=== PATIENT | female | born 1980 | race Caucasian/White ===

== ENCOUNTER 2020-02-09 18:14 | Inpatient (IN) | payer OTHER ==
[2020-02-09] MEDS ORDERED: chlordiazePOXIDE HCL 25 MG CAPSULE PO ONE (19:27)
[2020-02-09] MEDS ORDERED: LACTATED RINGERS SOLUTION 1000 ML INFUS.BAG IV STA (19:27)
--- NOTE | 2020-02-09 19:43 | PDOC ---
History of Present Illness - General Chief Complaint: Pain Stated Complaint: ABDOMINAL PAIN Time Seen by Provider: 02/09/20 18:32 History Source: Patient Exam Limitations: No Limitations - History of Present Illness Initial Comments: Silvana Boyce is a 39 F with a PMH of asthma, HLD, HTN, s/p gastric by pass, s/p c-sectionsx2, presents from [facility] with 2 weeks of abdominal pain. Pain is diffuse, episodic, sharp in nature, 8/10, non radiating, relieved with alcohol, associated with nausea and vomiting. She reports 2 episodes of NBNB vomits. Also reports occasional palpitations for 1 month and bright red blood per rectum w/bowel movements. Denies any fever, chest pain, SOB, diarrhea, constipation, weakness, changes in mental status. She was in [facility] today for alcohol detox. she reports alcohol use of 3 pints/D x 12 years, last use today (1 pint, before going to [facility]). Nicotine 1ppd since 12 years of age, current use. No illicit drugs, no hx of HIV, Hepatitis. LMP jan 2020, . 02/09/20 19:33 Past History - Medical History Allergies/Adverse Reactions: Allergies Allergy/AdvReac Type Severity Reaction Status Date / Time doxycycline Allergy Severe Verified 02/09/20 18:23 meperidine [From Demerol] Allergy Severe Verified 02/09/20 18:23 Home Medications: Ambulatory Orders NK [No Known Home Medication] 02/09/20 Asthma: No Cardiac Disorders: No COPD: No Diabetes: No GI Disorders: No Disorders: No HTN: No Kidney Stones: No Seizures: No - Surgical History Abdominal Surgery: No Appendectomy: No Cardiac Surgery: No Cholecystectomy: No Lung Surgery: No Neurologic Surgery: No Orthopedic Surgery: No - Reproductive History Is Patient Now?: No - Psycho-Social/Smoking History Smoking History: Current every day smoker Have you smoked in the past 12 months: Yes Number of Cigarettes Smoked Daily: 10 Information on smoking cessation initiated: Yes - Substance Abuse Hx (Audit-C & DAST Scrn) How often the patient has a drink containing alcohol: 4 0r more times/wk Number of drinks the patient has on a typical day: 5 or 6 How often the patient has six or more drinks on one occasion: Daily or almost daily Score: In Men: 4 or > Positive; In Women: 3 or > Positive: 10 Screen Result (Pos requires Nsg. Audit-10AR): Positive In the last yr the pt used illegal drug/Rx for NonMed reason: No Score: Yes response is considered Positive: 0 Screen Result (Positive result requires Nsg. DAST-10): Negative Review of Systems - Review of Systems Able to Perform ROS?: Yes Is the patient limited [place] proficient: No Constitutional: Yes: Chills. No: Fever HEENTM: No: Blurred Vision, Nose Congestion, Throat Pain, Throat Swelling, Difficulty Swallowing Respiratory: No: Cough, Shortness of Breath, Wheezing Cardiac (ROS): Yes: Palpitations. No: Chest Pain, Edema, Lightheadedness ABD/GI: Yes: Abdominal Distended, Rectal Bleeding. No: Abd. Pain w/ defecation, Constipated, Diarrhea, Difficulty Swallowing, Vomiting : No: Burning, Dysuria, Frequency, Urgency Musculoskeletal: Yes: Back Pain (upper b/l) Integumentary: No: Change in Color Neurological: Yes: Headache, Tremors. No: Numbness, Paresthesia, Weakness, Dizziness Psychiatric: No: Anxiety *Physical Exam - Vital Signs Last Vital Signs Temp Pulse Resp BP Pulse Ox 97.4 F L 111 H 20 132/64 100 02/09/20 18:23 02/09/20 18:23 02/09/20 18:23 02/09/20 18:23 02/09/20 18:23 - Physical Exam General Appearance: No: Apparent Distress HEENT: positive: EOMI, VIRA, Scleral Icterus (R), Scleral Icterus (L). nega tive: Nasal Congestion, Rhinorrhea Neck: positive: Supple. negative: Tender, Carotid bruit Respiratory/Chest: positive: Chest Tender, Lungs Clear, Normal Breath Sounds. negative: Respiratory Distress, Rales, Rhonchi, Wheezing Cardiovascular: positive: S1, S2, Murmur, Tachycardia, Systolic Murmur (holosystolic 4/6 along the left lateral border). negative: Edema, JVD Vascular Pulses: Carotid (R): 2+, Carotid (L): 2+, Dorsalis-Pedis (R): 2+, Doralis-Pedis (L): 2+ Gastrointestinal/Abdominal: positive: Normal Bowel Sounds, Tender (TTP of RUQ), Protuberent, Distended Musculoskeletal: positive: Normal Inspection Extremity: positive: Normal Inspection. negative: Pedal Edema, Calf Tenderness Integumentary: positive: Warm, Jaundice. negative: Swelling Neurologic: positive: Fully Oriented, Alert, Responsive ED Treatment Course - LABORATORY CBC & Chemistry Diagram: 02/11/20 05:30 02/11/20 05:30 - RADIOLOGY Radiology Studies Ordered: Category Date Time Status CHEST X-RAY PORTABLE* [RAD] Stat Radiology 02/09/20 19:05 Ordered Medical Decision Making - Medical Decision Making 39 F with a PMH of asthma, HLD, HTN, s/p gastric by pass, s/p c-sectionsx2, presents from [facility] with 2 weeks of abdominal pain. #Abdominal pain 2/2 to possible liver pathology -PT(INR)/PTT -Ammonia -CBC -CMP -UA -CXR -EKG -LR 100 mls -Librium 50 mg 02/09/20 19:43 Discharge - Discharge Information Problems reviewed: Yes Clinical Impression/Diagnosis: Hepatitis Condition: Stable Disposition: TRANSFER ACUTE CARE/OTHER HOSP - Follow up/Referral - Patient Discharge Instructions - Post Discharge Activity
[2020-02-09] MEDS ORDERED: chlordiazePOXIDE HCL 25 MG CAPSULE ONE (20:28)
[2020-02-09 21:23] LABS: BASO % 0.2 % (0-2.0); HEMATOCRIT 22.9 % (32.4-45.2); HEMOGLOBIN 7.6 GM/dL (10.7-15.3); LYMPH % 9.4 % (8-40); MCH 29.9 pg (25.7-33.7); MEAN CELL VOLUME 90.6 fl (80-96); MEAN PLT VOLUME 8.7 fl (7.5-11.1); MONO % 8.4 % (3.8-10.2); PLATELET COUNT 93 K/MM3 (134-434); RBC 2.53 M/mm3 (3.60-5.2); RDW 21.9 % (11.6-15.6); WHITE BLOOD COUNT 12.2 K/mm3 (4.0-10.0)
[2020-02-09 21:26] LABS: ACTIVATED PTT 37.3 SECONDS (25.2-36.5)
[2020-02-09 21:52] LABS: ANISOCYTOSIS 2+; MACROCYTOSIS 2+
[2020-02-09 21:53] LABS: ALBUMIN 2.5 g/dl (3.4-5.0); BILIRUBIN,TOTAL 11.2 mg/dL (0.2-1); CALCIUM 7.9 mg/dL (8.5-10.1); CREATININE 0.7 mg/dL (0.55-1.3); MAGNESIUM 1.8 mg/dL (1.8-2.4); ROULEAU 1+
[2020-02-09 22:04] LABS: EPI CELLS >36 /uL (0-25.1); HYALINE CASTS 20 /uL (0-3.1); PH,URINE 5.5 (5.0-8.0); URINE APPEARANCE TURBID; URINE BACTERIA >9,000 /uL (0-1359); URINE BILIRUBIN 3+ (NEGATIVE); URINE COLOR DK YELLOW; URINE GLUCOSE (UA) NEGATIVE (NEGATIVE); URINE KETONE TRACE (NEGATIVE); URINE LEUK ESTERASE TRACE (NEGATIVE); URINE NITRITE POSITIVE (NEGATIVE); URINE PROTEIN TRACE (NEGATIVE); URINE RBC 54 /uL (0-23.9); URINE UROBILINOGEN 0.2 mg/dL (0.2-1.0); URINE WBC 72 /uL (0-25.8)
[2020-02-09 22:15] LABS: PROTHROMBIN TIME (PATIENT) 20.1 SEC (9.7-13.0)
[2020-02-09 22:16] LABS: INR 1.69 (0.83-1.09)
[2020-02-09] MEDS ORDERED: CEFTRIAXONE 1 GM in DEXTROSE 5%-WATER - 100 ML IVPB ONE (22:26)
[2020-02-09] MEDS ORDERED: CEFTRIAXONE 1 GM/50 ML BAG ONE (23:09)
--- NOTE | 2020-02-09 23:54 | PDOC ---
*Physical Exam - Vital Signs Last Vital Signs Temp Pulse Resp BP Pulse Ox 97.4 F L 111 H 20 132/64 100 02/09/20 18:23 02/09/20 18:23 02/09/20 18:23 02/09/20 18:23 02/09/20 18:23 ED Treatment Course - LABORATORY CBC & Chemistry Diagram: 02/10/20 03:00 02/09/20 20:43 - ADDITIONAL ORDERS Additional order review: Laboratory Results 02/09/20 02/09/20 02/09/20 21:00 20:43 20:43 PT with INR INR PTT (Actin FS) Sodium 130 L Potassium 4.0 Chloride 97 L Carbon Dioxide 14 L Anion Gap 19 H BUN 17.0 Creatinine 0.7 Est GFR (CKD-EPI)AfAm 125.61 Est GFR (CKD-EPI)NonAf 108.38 Random Glucose 102 Calcium 7.9 L Magnesium 1.8 Total Bilirubin 11.2 H AST 419 H ALT 231 H Alkaline Phosphatase 329 H Total Protein 7.0 Albumin 2.5 L Serum , Qual Negative Urine Color Dk yellow Urine Appearance Turbid Urine pH 5.5 Ur Specific [place] 1.028 Urine Protein Trace Urine Glucose (UA) Negative Urine Ketones Trace H Urine Blood Negative Urine Nitrite Positive H Urine Bilirubin 3+ H Urine Urobilinogen 0.2 Ur Leukocyte Esterase Trace Urine WBC (Auto) 72 Urine RBC (Auto) 54 Urine Casts (Auto) 20 U Pathogenic Cast Auto Negative U Epithel Cells (Auto) >36 Urine Bacteria (Auto) >9,000 02/09/20 20:43 PT with INR 20.10 H INR 1.69 H PTT (Actin FS) 37.3 H Sodium Potassium Chloride Carbon Dioxide Anion Gap BUN Creatinine Est GFR (CKD-EPI)AfAm Est GFR (CKD-EPI)NonAf Random Glucose Calcium Magnesium Total Bilirubin AST ALT Alkaline Phosphatase Total Protein Albumin Serum , Qual Urine Color Urine Appearance Urine pH Ur Specific [place] Urine Protein Urine Glucose (UA) Urine Ketones Urine Blood Urine Nitrite Urine Bilirubin Urine Urobilinogen Ur Leukocyte Esterase Urine WBC (Auto) Urine RBC (Auto) Urine Casts (Auto) U Pathogenic Cast Auto U Epithel Cells (Auto) Urine Bacteria (Auto) 02/09/20 20:43 RBC 2.53 L MCV 90.6 MCHC 33.0 RDW 21.9 H MPV 8.7 Neutrophils % 82.0 Lymphocytes % 9.4 Monocytes % 8.4 Eosinophils % 0.0 Basophils % 0.2 - Medications Given in the ED: ED Medications Discontinued Medications Generic Name Dose Route Start Last Admin Trade Name Camryn PRN Reason Stop Dose Admin Chlordiazepoxide HCl 50 mg 02/09/20 19:27 02/09/20 20:39 Librium - PO 02/09/20 19:28 50 mg ONCE ONE Administration Ceftriaxone Sodium 1 gm/ 100 mls @ 200 mls/hr 02/09/20 22:26 02/09/20 23:51 Dextrose IVPB 02/09/20 22:55 200 mls/hr ONCE ONE Administration Lactated Ringer's 1,000 ml 02/09/20 19:27 02/09/20 20:39 Lactated Ringers Solution IV 02/09/20 19:28 1,000 ml ONCE STA Administration Medical Decision Making - Medical Decision Making 02/10/20 00:40 Patient had trembling/tongue fasciculation---> give another dose of librium. CT scan came back : enlarged fatty liver, questionaly cirrhotic. moderate ascites. MBMD sent . Decision to admit made. Admitted under [facility] for tele inpatient for alcohol withdraw and hepatitis. 02/10/20 05:00 Patient had an episode of hemaemesis about 20 mins ago. About 2-3 small table spoons of bright blood. Patient will be going to ICU per medicine team. Another IV bore is placed on the right AC arm. Last vital sign was 104/58, HR 115. 02/10/20 05:04 02/10/20 05:07 Discharge - Discharge Information Problems reviewed: Yes Clinical Impression/Diagnosis: Hepatitis Condition: Good - Admission Yes - Follow up/Referral - Patient Discharge Instructions - Post Discharge Activity
--- NOTE | 2020-02-10 00:38 | PDOC ---
Attending Attestation - Resident Resident Name: Rocky Bain - ED Attending Attestation I have performed the following: I have examined & evaluated the patient, The case was reviewed & discussed with the resident, I agree w/resident's findings & plan, Exceptions are as noted - HPI HPI: 02/10/20 03:36 See resident HPI - Physicial Exam PE: 02/10/20 03:36 Agree with documented exam - Medical Decision Making 02/10/20 03:36 39F pmh EtOH abuse, HTN, HLD, asthma, here with progressive abd px over 2 weeks, sent from [facility] Liver pathology? medardo? ascitic? f/u labs including ammonia, cxr, ekg LR librium re-evaluate dispo per clinical course Discharge - Discharge Information Problems reviewed: Yes Clinical Impression/Diagnosis: Hepatitis Condition: Good - Follow up/Referral - Patient Discharge Instructions - Post Discharge Activity
[2020-02-10] MEDS ORDERED: chlordiazePOXIDE HCL 25 MG CAPSULE PO ONE (01:14)
[2020-02-10] MEDS ORDERED: chlordiazePOXIDE HCL 25 MG CAPSULE ONE (01:43)
--- NOTE | 2020-02-10 02:26 | HP ---
CHIEF COMPLAINT: PCP: HISTORY OF PRESENT ILLNESS: ER course was notable for: (1)Ceftriaxone 1g (2)LR (3)Ab/Pelvic CT W/O contrast Recent Travel:None PAST MEDICAL HISTORY:DM, HTN, ASTHMA(LAST 3 PAST SURGICAL HISTORY: Gastric by-pass surg, tummy tuck surgery, Nose surgery following a # and tonsillectomy in childhood, depression Social History: Lives with 3 daughters. Has no occupation. Has Medicaid insurance Smokinppd/30yrs Alcohol:3 pints vodka/day for from age 12 for about 10yrs, stopped and restarted 12yrs ago. 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 Last drink was a day ago Drugs: None Allergies: Demerol and doxycycline REVIEW OF SYSTEMS: Negative except as above HOME MEDICATIONS: Home Medications Medication Instructions Recorded NK [No Known Home Medication] 02/09/20 Vital Signs - 24 hr 02/09/20 02/10/20 18:23 00:44 Temperature 97.4 F L 98.1 F Pulse Rate 111 H Pulse Rate [ 115 H Right Radial] Respiratory 20 15 Rate Blood Pressure 132/64 Blood Pressure 104/58 L [Left Arm] O2 Sat by Pulse 100 97 Oximetry (%) PHYSICAL EXAMINATION GENERAL: Awake, alert, and fully oriented, dyspneic and in severe painful distress HEAD: Normal with no signs of trauma. EYES: Iteric NECK: Normal range of motion, supple without lymphadenopathy, LUNGS: Vesicular Breath sounds equal b/l. No wheezes CVS:HEART S1 and S2 with pansystolic murmur ABDOMEN: Soft, very tender and distended with fluid, hypoactive bowel sounds. Hepatomegaly 10cm below costal margin. Palpation limited by severe abdominal pain ? Splenomegaly and gall bladder. No distended abdominal veins MUSCULOSKELETAL: Normal range of motion at all joints. UPPER EXTREMITIES: 2+ pulses, warm, well-perfused. No clubbing, no walsh eytherma. No peripheral edema. Tremors present but not flapping LOWER EXTREMITIES: 2+ pulses, warm, well-perfused. No calf tenderness. Peripheral edema 1+ NEUROLOGICAL: Cranial nerves II-XII intact. Normal speech. PSYCHIATRIC: Cooperative. Good eye contact. Sad affect, anxious with mild agitation. SKIN: Warm, dry, normal turgor, no walsh eytherma Laboratory Results - last 24 hr 02/09/20 02/09/20 02/09/20 20:43 20:43 20:43 WBC 12.2 H RBC 2.53 L Hgb 7.6 L Hct 22.9 L MCV 90.6 MCH 29.9 MCHC 33.0 RDW 21.9 H Plt Count 93 L MPV 8.7 Absolute Neuts (auto) 10.0 H Neutrophils % 82.0 Lymphocytes % 9.4 Monocytes % 8.4 Eosinophils % 0.0 Basophils % 0.2 Nucleated RBC % 0 Hypochromia 2+ Anisocytosis 2+ Macrocytosis 2+ Acanthocytes (Spur) 1+ Rouleaux 1+ Schistocytes 1+ PT with INR 20.10 H INR 1.69 H PTT (Actin FS) 37.3 H Sodium 130 L Potassium 4.0 Chloride 97 L Carbon Dioxide 14 L Anion Gap 19 H BUN 17.0 Creatinine 0.7 Est GFR (CKD-EPI)AfAm 125.61 Est GFR (CKD-EPI)NonAf 108.38 Random Glucose 102 Calcium 7.9 L Magnesium 1.8 Total Bilirubin 11.2 H AST 419 H ALT 231 H Alkaline Phosphatase 329 H Ammonia Total Protein 7.0 Albumin 2.5 L Serum , Qual Urine Color Urine Appearance Urine pH Ur Specific [place] Urine Protein Urine Glucose (UA) Urine Ketones Urine Blood Urine Nitrite Urine Bilirubin Urine Urobilinogen Ur Leukocyte Esterase Urine WBC (Auto) Urine RBC (Auto) Urine Casts (Auto) U Pathogenic Cast Auto U Epithel Cells (Auto) Urine Bacteria (Auto) 02/09/20 02/09/20 02/10/20 20:43 21:00 00:55 WBC RBC Hgb Hct MCV MCH MCHC RDW Plt Count MPV Absolute Neuts (auto) Neutrophils % Lymphocytes % Monocytes % Eosinophils % Basophils % Nucleated RBC % Hypochromia Anisocytosis Macrocytosis Acanthocytes (Spur) Rouleaux Schistocytes PT with INR INR PTT (Actin FS) Sodium Potassium Chloride Carbon Dioxide Anion Gap BUN Creatinine Est GFR (CKD-EPI)AfAm Est GFR (CKD-EPI)NonAf Random Glucose Calcium Magnesium Total Bilirubin AST ALT Alkaline Phosphatase Ammonia < 10.00 L Total Protein Albumin Serum , Qual Negative Urine Color Dk yellow Urine Appearance Turbid Urine pH 5.5 Ur Specific [place] 1.028 Urine Protein Trace Urine Glucose (UA) Negative Urine Ketones Trace H Urine Blood Negative Urine Nitrite Positive H Urine Bilirubin 3+ H Urine Urobilinogen 0.2 Ur Leukocyte Esterase Trace Urine WBC (Auto) 72 Urine RBC (Auto) 54 Urine Casts (Auto) 20 U Pathogenic Cast Auto Negative U Epithel Cells (Auto) >36 Urine Bacteria (Auto) >9,000 ASSESSMENT/PLAN: #ALCOHOLIC LIVER DISEASE: -Distended abdomen, Hepatomegaly, Hematochezia and melena, hematuria, hx of hematememsis -Transaminitis -Raised ALP -IV protonix 40mg -GGT ordered to confirm liver source of ALP -GI consult sent -metallurgical specialist consulted -TSH ordered -CT ABD/PELVIS W/O CONTRAST -Hep C PCR -Hepatitis B and A Panel HIV 4th gen screening #ALCOHOL INDUCED FATTY LIVER: -Abd US shows fatty liver -Elevated Tbili and liver enzymes -Hx of alcohol use disorder complicated -Lipid Panel #TRANSAMINITIS: -Elevated liver enzymes: ALT, AST, ALP -Sexually active, no barrier contraceptive use -Hepatitis A and B panel -Hep C serology -HIV th gen screening # MIXED ANEMIA: -Macrocytic anemia: Alcohol induced folate deficiency and toxic effect on bone marrow with macrocytic RBC -Iron deficiency from hematochezia, melena, hematuria and malnutrition associated with alcoholism -Thrombocytopenia like due to direct toxic effect, hypersplenism or folate deficiency due to alcoholism -Progressive drop in Hb likely due to continuous bleed. Patient reports passing black stool again while in ED -PT/INR, PTT admitted -2PRBC transfusion stat -Iron studeis: FOBT, serum Fe, ferritin, TIBC, transferrin -Avoid NSAID and other meds that may worsen bleeding -Avoid hepatotoxic meds -Educate patient on importance of alcohol cessation #FEN: -N/S, banana bag -Mg, Phos stat, replete all electrolytes prn -NPO #DISPOSITION: -Admit ICU -SCD both legs -F/U all pending labs and Rx as clinically required Family Medical History Family History: As Documented Visit type - Emergency Visit Emergency Visit: Yes ED Registration Date: 02/10/20 Care time: The patient presented to the Emergency Department on the above date and was hospitalized for further evaluation of their emergent condition. - New Patient This patient is new to me today: Yes Date on this admission: 02/12/20 - Critical Care Critical Care patient: No ATTENDING PHYSICIAN STATEMENT I saw and evaluated the patient. I reviewed the resident's note and discussed the case with the resident. I agree with the resident's findings and plan as documented. SUBJECTIVE: OBJECTIVE: ASSESSMENT AND PLAN:
[2020-02-10] MEDS ORDERED: KETOROLAC TROMETHAMINE 15 MG/ML VIAL IVPUSH ONE (03:27)
[2020-02-10] MEDS ORDERED: SODIUM BICARBONATE 650 MG TABLET PO ONE (03:28)
[2020-02-10] MEDS ORDERED: SODIUM CHLORIDE 1,000 ML IV SCH ×2 (03:30→03:42)
[2020-02-10] MEDS ORDERED: PANTOPRAZOLE SODIUM 40 MG VIAL IVPUSH SCH ×2 (03:38→10:00)
[2020-02-10] MEDS ORDERED: FOLIC ACID INJECTION - 1 MG, THIAMINE HCL 100 MG, MULTIVIT INJECTION ADULT 10 ML in SOD... IVPB ONE (03:39)
[2020-02-10] MEDS ORDERED: KETOROLAC TROMETHAMINE 15 MG/ML VIAL ONE (03:40)
[2020-02-10] MEDS ORDERED: morphine CARPU-JECT 2 MG/1 ML DISP.SYRIN IVPUSH ONE (03:48)
[2020-02-10] MEDS ORDERED: MORPHINE SULFATE 2 MG/ML VIAL ONE (03:56)
[2020-02-10] MEDS ORDERED: LORazepam 2 MG/ML SDV VIAL IVPUSH PRN (04:01)
[2020-02-10 04:02] LABS: BASO % 0.5 % (0-2.0); EOS % 0.1 % (0-4.5); HEMATOCRIT 21.5 % (32.4-45.2); HEMOGLOBIN 7.2 GM/dL (10.7-15.3); LYMPH % 18.4 % (8-40); MCH 30.1 pg (25.7-33.7); MCHC 33.6 g/dl (32.0-36.0); MEAN CELL VOLUME 89.6 fl (80-96); MEAN PLT VOLUME 8.5 fl (7.5-11.1); MONO % 7.7 % (3.8-10.2); NEUT % 73.3 % (42.8-82.8); PLATELET COUNT 84 K/MM3 (134-434); RDW 21.7 % (11.6-15.6); WHITE BLOOD COUNT 10.4 K/mm3 (4.0-10.0)
[2020-02-10] MEDS ORDERED: ERYTHROMYCIN *INJECTION* 500 MG VIAL IVPB ONE (04:53)
[2020-02-10] MEDS ORDERED: OCTREOTIDE ACETATE 50 MCG/1 ML - 1 ML VIAL IVPUSH ONE (04:53)
--- NOTE | 2020-02-10 05:19 | PN ---
Progress Note (short form) - Note Progress Note: Call placed to circulation manager GI service (Dr. William) for suspected acute GI bleed. Patient found to have 1 episode of bright red hematemesis without any clots. Pt's Hgb dropped from 7.6 to 7.2. Pt is an alcoholic admitted for acute withdrawal from alcohol as well as cirrhosis and jaundice with hematochezia. Pt given IV protonix and fluids, kept NPO. As per GI recommendations, will start octreotide drip and give erythromycin 250 to help empty stomach prior to EGD in AM. Pt's vitals are stable, ICU has been consulted, and they will provide assistance however given pt's vitals are stable, she will remain under telemetry care at this time.
[2020-02-10] MEDS ORDERED: LORazepam 2 MG/ML SDV VIAL ONE (05:39)
[2020-02-10] MEDS ORDERED: OCTREOTIDE ACETATE 100 MCG/1 ML ONE (05:40)
--- NOTE | 2020-02-10 05:48 | CONSULT ---
Consultation: REQUESTING PROVIDER: CONSULT REQUEST: We have been asked to medically evaluate this patient for hematemesis. HISTORY OF PRESENT ILLNESS: 39 year old F with a PMH of asthma, HLD, HTN, alcohol use disorder presented from [facility] for detox from alcohol with 2 weeks of abdominal pain. Pain is hortencia cribed as sharp and diffuse, but non-radiating. Pt stated it is relieved w/ alcohol. Currently rated 8/10 and is episodic. Pt also endorsed to N/V. Reported 2 episodes of NBNB vomitus and 1 episode of bright red blood per rectum. She denies fevers, chills, chest pain, SOB, constipation, changes in urinary patterns, numbness or tingling. Pt was admitted to Telemetry. While in the ED, pt had 1 episode of hematemesis of approximately 3 tablespoons of blood. Pt hemodynamically stable and able to protect airway. Saturation 99% on RA. GI consulted. Recommendations as below. PSH: gastric bypass, REVIEW OF SYSTEMS: As per HPI. PHYSICAL EXAMINATION Last Vital Signs Temp Pulse Resp BP Pulse Ox 98.1 F 115 H 15 104/58 L 97 02/10/20 00:44 02/10/20 00:44 02/10/20 00:44 02/10/20 00:44 02/10/20 00:44 GENERAL: Awake, alert, and fully oriented, in no acute distress. HEENT: NCAT, scleral icterus, moist mucus membranes. No active hematemesis. LUNGS: Breath sounds equal, clear to auscultation bilaterally. No wheezes. HEART: Regular rate and rhythm, normal S1 and S2 without murmur. ABDOMEN: Diffusely tender to palpaiton, distended, bowel sounds present. EXTREMITIES: warm, well-perfused, no edema. SKIN: Warm, dry Laboratory Last Values WBC 10.4 K/mm3 (4.0-10.0) H 02/10/20 03:00 RBC 2.40 M/mm3 (3.60-5.2) L 02/10/20 03:00 Hgb 7.2 GM/dL (10.7-15.3) L 02/10/20 03:00 Hct 21.5 % (32.4-45.2) L 02/10/20 03:00 MCV 89.6 fl (80-96) 02/10/20 03:00 MCH 30.1 pg (25.7-33.7) 02/10/20 03:00 MCHC 33.6 g/dl (32.0-36.0) 02/10/20 03:00 RDW 21.7 % (11.6-15.6) H 02/10/20 03:00 Plt Count 84 K/MM3 (134-434) L 02/10/20 03:00 MPV 8.5 fl (7.5-11.1) 02/10/20 03:00 Absolute Neuts (auto) 7.7 K/mm3 (1.5-8.0) 02/10/20 03:00 Neutrophils % 73.3 % (42.8-82.8) 02/10/20 03:00 Lymphocytes % 18.4 % (8-40) D 02/10/20 03:00 Monocytes % 7.7 % (3.8-10.2) 02/10/20 03:00 Eosinophils % 0.1 % (0-4.5) D 02/10/20 03:00 Basophils % 0.5 % (0-2.0) 02/10/20 03:00 Nucleated RBC % 0 % (0-0) 02/10/20 03:00 Hypochromia 2+ 02/09/20 20:43 Anisocytosis 2+ 02/09/20 20:43 Macrocytosis 2+ 02/09/20 20:43 Acanthocytes (Spur) 1+ 02/09/20 20:43 Rouleaux 1+ 02/09/20 20:43 Schistocytes 1+ 02/09/20 20:43 PT with INR 20.10 SEC (9.7-13.0) H 02/09/20 20:43 INR 1.69 (0.83-1.09) H 02/09/20 20:43 PTT (Actin FS) 37.3 SECONDS (25.2-36.5) H 02/09/20 20:43 Sodium 130 mmol/L (136-145) L 02/09/20 20:43 Potassium 4.0 mmol/L (3.5-5.1) 02/09/20 20:43 Chloride 97 mmol/L (98-107) L 02/09/20 20:43 Carbon Dioxide 14 mmol/L (21-32) L 02/09/20 20:43 Anion Gap 19 MMOL/L (8-16) H 02/09/20 20:43 BUN 17.0 mg/dL (7-18) 02/09/20 20:43 Creatinine 0.7 mg/dL (0.55-1.3) 02/09/20 20:43 Est GFR (CKD-EPI)AfAm 125.61 02/09/20 20:43 Est GFR (CKD-EPI)NonAf 108.38 02/09/20 20:43 Random Glucose 102 mg/dL (74-106) 02/09/20 20:43 Calcium 7.9 mg/dL (8.5-10.1) L 02/09/20 20:43 Magnesium 1.8 mg/dL (1.8-2.4) 02/09/20 20:43 Total Bilirubin 11.2 mg/dL (0.2-1) H 02/09/20 20:43 AST 419 U/L (15-37) H 02/09/20 20:43 ALT 231 U/L (13-61) H 02/09/20 20:43 Alkaline Phosphatase 329 U/L (45-117) H 02/09/20 20:43 Ammonia < 10.00 umol/L (11-32) L 02/10/20 00:55 Total Protein 7.0 g/dl (6.4-8.2) 02/09/20 20:43 Albumin 2.5 g/dl (3.4-5.0) L 02/09/20 20:43 Serum , Qual Negative 02/09/20 20:43 Urine Color Dk yellow 02/09/20 21:00 Urine Appearance Turbid 02/09/20 21:00 Urine pH 5.5 (5.0-8.0) 02/09/20 21:00 Ur Specific [place] 1.028 (1.010-1.035) 02/09/20 21:00 Urine Protein Trace (NEGATIVE) 02/09/20 21:00 Urine Glucose (UA) Negative (NEGATIVE) 02/09/20 21:00 Urine Ketones Trace (NEGATIVE) H 02/09/20 21:00 Urine Blood Negative (NEGATIVE) 02/09/20 21:00 Urine Nitrite Positive (NEGATIVE) H 02/09/20 21:00 Urine Bilirubin 3+ (NEGATIVE) H 02/09/20 21:00 Urine Urobilinogen 0.2 mg/dL (0.2-1.0) 02/09/20 21:00 Ur Leukocyte Esterase Trace (NEGATIVE) 02/09/20 21:00 Urine WBC (Auto) 72 /uL (0-25.8) 02/09/20 21:00 Urine RBC (Auto) 54 /uL (0-23.9) 02/09/20 21:00 Urine Casts (Auto) 20 /uL (0-3.1) 02/09/20 21:00 U Pathogenic Cast Auto Negative /lpf (NEGATIVE) 02/09/20 21:00 U Epithel Cells (Auto) >36 /uL (0-25.1) 02/09/20 21:00 Urine Bacteria (Auto) >9,000 /uL (0-1359) 02/09/20 21:00 Stool Occult Blood Positive (NEGATIVE) 02/10/20 05:19 Active Medications Erythromycin Lactobionate (Erythromycin Injection -) 250 mg IVPB ONCE ONE Stop: 02/10/20 04:54 Ceftriaxone Sodium 1,000 mg/ (Dextrose) 50 mls @ 100 mls/hr IVPB DAILY [facility] Folic Acid 1 mg/ Thiamine HCl 100 mg/ Multivitamins/Minerals 10 ml/ Sodium Chloride 1,000 mls @ 125 mls/hr IVPB ONCE ONE Stop: 02/10/20 11:38 Last Admin: 02/10/20 05:25 Dose: 125 mls/hr Documented by: Sodium Chloride (Normal Saline -) 1,000 mls @ 100 mls/hr IV ASDIR ANDERSON Last Admin: 02/10/20 05:26 Dose: 100 mls/hr Documented by: Octreotide Acetate 200 mcg/Octreotide Acetate 1,000 mcg/Dextrose 500 mls @ 20.833 mls/hr IVPB ASDIR ANDERSON Lorazepam (Ativan Injection -) 1 mg IVPUSH 0500,1100,1700,2300 [facility] Stop: 02/11/20 23:01 Lorazepam (Ativan Injection -) 1 mg IVPUSH Q4H PRN PRN Reason: Symptoms of Withdrawal Stop: 02/12/20 00:00 Lorazepam (Ativan Injection -) 2 mg IVPUSH 0500,1100,1700,2300 [facility] Stop: 08/21/20 23:01 Lorazepam (Ativan Injection -) 0.5 mg IVPUSH Q6H ANDERSON Stop: 02/12/20 23:01 Lorazepam (Ativan Injection -) 0.5 mg IVPUSH Q4H PRN PRN Reason: Symptoms of Withdrawal Stop: 02/13/20 00:00 Lorazepam (Ativan Injection -) 0.5 mg IVPUSH ONCE ONE Stop: 02/13/20 05:01 Octreotide Acetate (Sandostatin -) 50 mcg IVPUSH ONCE ONE Stop: 02/10/20 04:54 Pantoprazole Sodium (Protonix Iv) 40 mg IVPUSH BID [facility] CT ABD/PELVIS FINDINGS: Lung bases are clear. The visualized cardiac chambers are normal size and configuration. The liver is enlarged and fatty, questionably cirrhotic. Spleen is not enlarged. Moderate amount of ascites is noted. Normal gallbladder, pancreas, spleen, adrenal glands and kidneys. Status post gastric bypass without bowel obstruction or inflammation.. There is no aortic aneurysm. There is no significant retroperitoneal lymphadenopathy. The pelvic small and large bowel are normal. There is no evidence of appendicitis, although the appendix is not clearly visualized. The uterus and adnexal structures are normal. Surgical clip in the cul-de-sac may have dropped during gastric bypass. Urinary bladder is unremarkable. No discrete pelvic lymphadenopathy is identified. IMPRESSION: Moderate amount of ascites. Enlarged fatty liver, questionably cirrhotic. ASSESSMENT/PLAN: 39 year old F with a PMH of asthma, HLD, HTN, alcohol use disorder presented from [facility] for detox from alcohol with 2 weeks of abdominal pain and hematemesis. Given pt's hemodynamically stability and ability to maintain her airway, ICU monitoring not required at this time. Please re-consult if active hematemesis/active bleed per rectum, pt's inability to protect airway requiring intubation or if there is significant drop in H/H requiring massive transfusion protocol. Neuro/Psych Alcohol use disorder -Alert and oriented - c/w Ativan for withdrawal - c/w folic acid, thiamine - Ammonia level <10 - GGT 947 Cardiac Normotensive - Monitor and transfuse if Hb <7 or if active bleed, consider early transfusion - Will receive 2 pRBC Pulmonary - No acute issues - Supplemental O2 to GI Hematemesis Transaminitis - GI consulted. Recommended c/w IV protonix, fluids, octreotide drip and erythromycin. Keep NPO, due to possibility for scope. - Monitor and transfuse if Hb <7 or if active bleed, consider early transfusion - Close monitoring for episodes of hematemesis/ rectal bleed. - Stool occult positive. - Avoid hepatotoxic medication if possible. - CT Abd/pelvis as above. Renal Hyponatremia - Monitor and replete electrolytes - Monitor Cr -UA positive for UTI -c/w ceftriaxone ID UTI - c/w ceftriaxone - f/u COVID FEN -NS @ 100 - Monitor and replete electrolytes - NPO Ppx - DVT: SCD - GI: PPI LTD -None Dispo: Please re-consult if necessary. Thank you for this consultative opportunity. Visit type - Emergency Visit Emergency Visit: Yes ED Registration Date: 02/10/20 Care time: The patient presented to the Emergency Department on the above date and was hospitalized for further evaluation of their emergent condition. - New Patient This patient is new to me today: No - Critical Care Critical Care patient: Yes Total Critical Care Time (in minutes): 39 Critical Care Statement: The care of this patient involved high complexity decision making to prevent further life threatening deterioration of the patient's condition and/or to evaluate & treat vital organ system(s) failure or risk of failure. ATTENDING PHYSICIAN STATEMENT I saw and evaluated the patient. I reviewed the resident's note and discussed the case with the resident. I agree with the resident's findings and plan as documented. SUBJECTIVE: OBJECTIVE: ASSESSMENT AND PLAN:
[2020-02-10] MEDS: LORazepam 2 MG/ML SDV VIAL IVPUSH SCH ×3 (05:54→13:15)
[2020-02-10 05:57] LABS: BASO % 0.1 % (0-2.0); HEMATOCRIT 21.1 % (32.4-45.2); HEMOGLOBIN 7.1 GM/dL (10.7-15.3); LYMPH % 74.9 % (8-40); MCHC 33.5 g/dl (32.0-36.0); MEAN CELL VOLUME 89.6 fl (80-96); MEAN PLT VOLUME 8.2 fl (7.5-11.1); MONO % 3.6 % (3.8-10.2); NEUT % 21.4 % (42.8-82.8); PLATELET COUNT 70 K/MM3 (134-434); RBC 2.35 M/mm3 (3.60-5.2); RDW 22.2 % (11.6-15.6); WHITE BLOOD COUNT 9.4 K/mm3 (4.0-10.0)
--- NOTE | 2020-02-10 06:29 | PN ---
Teaching Attending Note Name of Resident: Donnell Maya ATTENDING PHYSICIAN STATEMENT I saw and evaluated the patient. I reviewed the resident's note and discussed the case with the resident. I agree with the resident's findings and plan as documented. SUBJECTIVE: OBJECTIVE: ASSESSMENT AND PLAN: Patient was seen and examined, chart reviewed. 39 year old female with a PMHx notable for asthma, HLD, HTN, s/p gastric by pass, s/p c-sectionsx2, who presents with acute blood loss anemia/rectal bleed. Plan - s/p small episode of hematemesis in the ED - Patient remains hemodynamically stable - Hgb decreased 7.2<--7.6 agree with transfusion 2 units PRBC - Agree with IV Protonix/IV octreotide - Banana bag IV fluids - NPO - GI consult in AM
[2020-02-10 06:34] LABS: ALBUMIN 2.3 g/dl (3.4-5.0); BILIRUBIN,TOTAL 12.1 mg/dL (0.2-1); BLOOD UREA NITROGEN 13.6 mg/dL (7-18); CALCIUM 7.1 mg/dL (8.5-10.1); CREATININE 0.7 mg/dL (0.55-1.3); MAGNESIUM 1.5 mg/dL (1.8-2.4); PHOSPHOROUS 1.6 mg/dL (2.5-4.9); POTASSIUM 3.7 mmol/L (3.5-5.1); TOT PROT 6.4 g/dl (6.4-8.2)
[2020-02-10 07:04] VITALS: BMI 29.3
[2020-02-10 07:14] LABS: ANISOCYTOSIS 2+; MACROCYTOSIS 2+; PLATELET ESTIMATE DECREASED; ROULEAU 1+
[2020-02-10] MEDS ORDERED: MAGNESIUM SULF 50% (8.12 MEQ/2 ML-1 GM VIAL) IVPB ONE ×2 (07:16)
[2020-02-10] MEDS ORDERED: MAGNESIUM SULFATE IN WATER 2 GM/50 ML IVPB IVPB ONE (08:15)
[2020-02-10] MEDS: DEXTROSE 5%-NORMAL SALINE 1,000 ML IV SCH (08:40)
--- NOTE | 2020-02-10 09:21 | CON.GI ---
Consult Consult Specialty:: GI Referred by:: Hospitalist Service Reason for Consultation:: Abdominal pain, hematemesis in ED - History of Present Illness Chief Complaint: Abdominal pain History of Present Illness: 39F admitted for evaluation of abdominal pain. Abdominal pain has been for 2 weeks. Patient from [facility]. Chronic alcohol abuse with upwards of 3+ Pints of liquor per day. She lives in the [place]. No previous records here for review. 1 episode of bright red vomitus described in ED. H&P reports episodes of non blo bri vomitus intermittently as well. previous hematochezia per H&P. Patient states that she has noticed this. Patient believes that she remotely had an EGD at [facility] but does not remember findings or interventions. No further bleeding. No melena or BRBPR reported. No family history of colorectal cancer. Had D/W Dr. Brown, Human Resource Statistician @ [facility]. Patient was seen 06/06 @ [facility] for headache. Did have CBC 2016 that revealed Hgb 9.2. had Hgb 7.6 in 2014. MELDNa: 27 Hepatitis Discriminant Function: 49 - History Source History Provided By: Patient, Medical Record Limitations to Obtaining History: Poor Historian - Past Medical History Cardio/Vascular: Yes: HTN Pulmonary: Yes: Asthma Hepatobiliary: Yes: Cirrhosis ...LMP: 01/22/20 ...: (unknown) Psych: Yes: Addictions (Alcoholism) - Past Surgical History Additional Surgical History: Gastric bypass, , treatment of groin abscess, abdominoplasty - Alcohol/Substance Use Hx Alcohol Use: Yes - Smoking History Smoking history: Current every day smoker Have you smoked in the past 12 months: Yes Aproximately how many cigarettes per day: 20 - Social History Usual Living Arrangement: With Child (with three daughters) Place of : [place] History of Recent Travel: No Home Medications - Allergies Allergies/Adverse Reactions: Allergies Allergy/AdvReac Type Severity Reaction Status Date / Time doxycycline Allergy Severe Verified 02/09/20 18:23 meperidine [From Demerol] Allergy Severe Verified 02/09/20 18:23 - Home Medications Home Medications: Ambulatory Orders NK [No Known Home Medication] 02/09/20 Family Medical History Other Family History: No family history of colorectal cancer or other GI malignancy Review of Systems - Review of Systems Constitutional: denies: Fever, Unintentional Wgt. Loss Cardiovascular: reports: Chest Pain Gastrointestinal: reports: Abdominal Pain, Bloating, Vomiting, Vomiting Blood. denies: Nausea Physical Exam-GI Vital Signs: Vital Signs Temperature 98.3 F 02/10/20 06:45 Pulse Rate 103 H 02/10/20 06:45 Respiratory Rate 17 02/10/20 06:45 Blood Pressure 130/75 02/10/20 06:45 O2 Sat by Pulse Oximetry (%) 95 02/10/20 06:45 Constitutional: Yes: Calm Eyes: Yes: Sclera Icterus Cardiovascular: Yes: Tachycardia, Murmur (2/6 systolic murmur at the LSB) Respiratory: Yes: CTA Bilaterally Gastrointestinal Inspection: Yes: Scars (Healed trochar scars). No: Distention ...Auscultate: Yes: Normoactive Bowel Sounds ...Palpate: Yes: Hepatomegaly, Soft. No: Tenderness ...Percussion: No: Tympanitic ...Rectal Exam: Yes: Other (No external lesions, no masses. trace light stool in rectal vault. No melena/blood) Edema: No (No LE edema) Neurological: Yes: Alert, Oriented (x 3), Tremors (Mild bilateral hand tremors). No: [facility] Labs: CBC, BMP 02/10/20 05:30 02/10/20 05:30 INR, PTT INR 1.69 (0.83-1.09) H 02/09/20 20:43 Hepatic Panel Total Bilirubin 12.1 mg/dL (0.2-1) H 02/10/20 05:30 AST 368 U/L (15-37) H 02/10/20 05:30 ALT 204 U/L (13-61) H 02/10/20 05:30 Alkaline Phosphatase 312 U/L (45-117) H 02/10/20 05:30 Albumin 2.3 g/dl (3.4-5.0) L 02/10/20 05:30 Imaging - Results Cat Scan: Report Reviewed, Image Reviewed Problem List - Problems (1) Cirrhosis of liver Assessment/Plan: Alcoholic liver disease: Acute on chronic dysfunction: alcoholic hepatitis with underlying decompensated alcoholic cirrhosis. Unclear what baseline liver parameters are at this time given that this is her first time in the [facility] system. Also with Sequelae of ascites. Electrolyte abnormalities likely reflecting alcohol abuse and poor nutrition Anemia: likely multifactorial and from some previous lab values component of chronicity. Suspect iron deficiency in setting of gastric bypass and subsequent poor follow-up / care as well as from intermittent blood loss as described in H&P. Currently remains hemodynamically stable with no further episodes of bleeding. No melena on SHANE Advise: Continued NPO except meds Continue octreotide/PPI drip for now Medical optimization / correction of electrolyte abnormalities Keep Hgb >7. Avoid over transfusion Dosed Vitamin K 10mg SC x 1 Continue ceftriaxone 2g daily Abdominal US to assess hepatobiliary anatomy further Spoke with medical oncologist Dr. Gucci Brown at [facility] and discussed case with him. Given extent of liver disease, she was accepted for transfer to [facility] for further work-up, under medical oncologist Dr. Jennifer Mann's service. This was explained to Ms. Boyce, who was in agreement with the transfer. Discussed with primary team Did discuss upper endoscopy with Ms. Boyce to assess for potential source of bleeding such as esophageal varices, PUD, portal gastropathy, MWT in setting of prior episodes of non-bloody vomiting prior to admission. Discussed potential risks of the procedure like but not limited to bleeding, perforation requiring surgery to repair, infection, sedation medication effects all of which could be potentially life threatening. She has agreed to the procedure. Would likely defer for now until optimized metabolically, sooner if clinical course calls for emergent endoscopy. Withdrawal precautions Advised the need for complete alcohol cessation I asked Ms. Boyce if she wanted me to speak with any of her family members regarding her current clinical situation. She stated no. Code(s): K74.60 - UNSPECIFIED CIRRHOSIS OF LIVER
[2020-02-10] MEDS ORDERED: PHYTONADIONE 10 MG/1 ML AMP SQ ONE (09:30)
[2020-02-10] MEDS ORDERED: ERYTHROMYCIN INJECTION - 250 MG in SODIUM CHLORIDE 100 ML IVPB ONE (10:00)
[2020-02-10] MEDS ORDERED: OCTREOTIDE ACETATE 200 MCG, OCTREOTIDE ACETATE 1,000 MCG in DEXTROSE 5%-WATER - 496 ML IVPB SCH (10:00)
[2020-02-10] MEDS ORDERED: SODIUM PHOSPHATE - 25 MM in SODIUM CHLORIDE 500 ML IV ONE (10:00)
--- NOTE | 2020-02-10 10:46 | EKG ---
Test Reason : Blood Pressure : / mmHG Vent. Rate : 103 BPM Atrial Rate : 103 BPM P-R Int : 150 ms QRS Dur : 084 ms QT Int : 384 ms P-R-T Axes : 064 069 055 degrees QTc Int : 503 ms SINUS TACHYCARDIA POSSIBLE LEFT ATRIAL ENLARGEMENT CANNOT RULE OUT ANTERIOR INFARCT , AGE UNDETERMINED ABNORMAL ECG NO PREVIOUS ECGS AVAILABLE Confirmed by BING QUINN MD ([id number]) on 02/10/2020 10:45:43 AM Referred By: Confirmed By:BING QUINN MD
[2020-02-10] MEDS: PANTOPRAZOLE SODIUM 40 MG VIAL IVPUSH SCH ×2 (10:49→21:40)
--- NOTE | 2020-02-10 11:48 | PN ---
Teaching Attending Note Name of Resident: Tad Patterson ATTENDING PHYSICIAN STATEMENT I saw and evaluated the patient. I reviewed the resident's note and discussed the case with the resident. I agree with the resident's findings and plan as documented. SUBJECTIVE: poor historian No fever or chills. has generalized abd pain , mild , x 2 weeks . one episode of hematomesis yesterday, vomiting in past week . reports BRBPR in past week x 1. has no diarrhea . reprots EGD in past but harrell snot remember the results. is not aware of a cirrhosis or varices. No hx of colonoscopy OBJECTIVE: NAD, awake, alert, icteric sclera , dry MM. no facial droop, tongue at mid line . jaundiced CV: RRR, 3/6 SM heard all over the precordium with a diastolic component in LLSB . No radiation to carotid Lungs: CTAB Abd: soft, distended, mild TTP in all quadrants. + shifting dullness, liver is palpated about 6-7 cm below costal margin and in epigastric area. Spleen is not felt . no guarding Ext : no edema on Le . small ulcer with scab on R leg . no discharge ASSESSMENT AND PLAN: 39 y/o lady with h/o ETOH abuse, HLP, HTN, gastric bypass, asthma, and ? other medical problems who presented from [facility] with abd pain and jaundice 1- Suspected liver cirrhosis 2- Transaminitis : likely due to liver cirrhosis. doubt CBD obstruction but need to r/o . cholangitis is unlikely. 3- ? component of alcoholic hepatitis 4- Upper GI bleed : ulcer/gastritis /anastomosis ulceration/ or Mikayla Lopez tear. Can't rule out variceal bleed 5- possible UTI. 6- Normocytic anemia: multifactoria, due to liver disease, intermittent GI blee, and possible B12/folate def 7- Thrombocytopenia : due to liver disease and BM suppression from ETOH 8- ETOH abuse /intoxication . r/o withdrawal Plan : - cont PPI and Octreotide - cont IVF, change to D5 NS - cont NPO. in case she rebleeds. - EGD when appropriate by GI - change ceftriaxone to 2 g q24 hr , and add flagyl. - order Iron studeis , folate, and B12 levels - give only one unit of RBC.cancel the second - monitor coags after Vit K - Monitor LFTS - US of Abd . - MRCP pending - SCDs , avoid chemical DVT px - follow hepatitis serology - replete Na, Khos, and Mg - received IV Thiamine in ER . start po thiamine and folate - start ativan protocol as potential of withdrawal is high. D/W GI. Accepted for Transfer to [facility]. paperwork done and transfer is pending COVID status.
[2020-02-10] MEDS ORDERED: LORazepam 1 MG TABLET PO PRN (12:21)
--- NOTE | 2020-02-10 12:57 | CONSULT ---
Consult Detox [facility] Reason for Current Admission/Consult: Alcohol Intoxication and withdrawal Referred by:: Joy Powell - History History of Present Illness: 39 y.o. female requesting detox from alcohol use , reports 3 pints/day x 12 years , latest use today current AMANDA 0.134 . Pt is poor historian 2/2 intoxication and clinical condition. Pt reports BRBPR x 2 weeks associated w/ BM . PMHX ; asthma , hld , htn , gastric bypass , anemia PSHx : skin graft 2/2 abscess 2 surgical site ( skin redux after significant wt loss post-op ) w/ abscess I & D , tonsillectomy , nasal frx , C-sx x 2 Psych : depression , denies SI / HI allergies : doxy , meperidine LMP January 2020 ages 22,20,16 ,13 youngest 3 children live w/ pt Exam Limitations: Clinical Condition, Intoxication- Substance Use History Alcohol Substance amount: 3 pints vodka Frequency of use: Daily Substance route: Oral Date of Last Use: 02/09/20 Nicotine Substance amount: 1 pack Frequency of use: Daily Substance route: Smoking Date of Last Use: 02/09/20 - History Source History Provided By: Medical Record Limitations to Obtaining History: No Limitations - Alcohol/Substance Use Hx Alcohol Use: Yes Hx Substance Use: Yes Hx Substance Use Treatment: No - Current Drug/Alcohol Use Alcohol Route: Oral Frequency: Daily Amount used: 3 pints vodka Age of first use: 12 Date of Last Use: 02/09/20 - Past Medical History Cardio/Vascular: Yes: HTN Pulmonary: Yes: Asthma Hepatobiliary: Yes: Cirrhosis ...LMP: 01/22/20 ...: (unknown) Psych: Yes: Addictions (Alcoholism) - Past Surgical History Past Surgical History: Yes: None Additional Surgical History: Gastric bypass, , treatment of groin abscess, abdominoplasty - Significant Medical Findings: Vital Signs: Vital Signs Temperature 98.3 F 02/10/20 06:45 Pulse Rate 103 H 02/10/20 06:45 Respiratory Rate 17 02/10/20 06:45 Blood Pressure 130/75 02/10/20 06:45 O2 Sat by Pulse Oximetry (%) 95 02/10/20 06:45 Constitutional: Yes: Calm Eyes: Yes: Sclera Icterus Cardiovascular: Yes: Tachycardia, Murmur (2/6 systolic murmur at the LSB) Respiratory: Yes: CTA Bilaterally Gastrointestinal Inspection: Yes: Scars (Healed trochar scars). No: Distention ...Auscultate: Yes: Normoactive Bowel Sounds ...Palpate: Yes: Hepatomegaly, Soft. No: Tenderness ...Percussion: No: Tympanitic ...Rectal Exam: Yes: Other (No external lesions, no masses. trace light stool in rectal vault. No melena/blood) Edema: No (No LE edema) Neurological: Yes: Alert, Oriented (x 3), Tremors (Mild bilateral hand tremors). No: [facility] Labs: CBC, BMP 02/10/20 05:30 02/10/20 05:30 INR, PTT INR 1.69 (0.83-1.09) H 02/09/20 20:43 Hepatic Panel Total Bilirubin 12.1 mg/dL (0.2-1) H 02/10/20 05:30 AST 368 U/L (15-37) H 02/10/20 05:30 ALT 204 U/L (13-61) H 02/10/20 05:30 Alkaline Phosphatase 312 U/L (45-117) H 02/10/20 05:30 Albumin 2.3 g/dl (3.4-5.0) L 02/10/20 05:30 CIWA Score - CIWA Score Nausea/Vomitin Muscle Tremors: 3 Anxiety: 3 Agitation: 3 Paroxysmal Sweats: No Perspiration Orientation: 0-Oriented Tacttile Disturbances: 0-None Auditory Disturbances: 0-None Visual Disturbances: 0-None Headache: 1-Very Mild CIWA-Ar Total Score: 12 Assessment Plan - Diagnosis (1) Alcohol intoxication in active alcoholic with complication Status: Acute (2) Cirrhosis of liver Status: Acute (3) Hepatitis Status: Acute - Plan Plan: 1.- Suspected liver cirrhosis follow recommendations by GI 2.- Transaminitis : likely due to liver cirrhosis. doubt CBD obstruction but need to r/o . cholangitis is unlikely. Alcoholic transminitis is more likely. 3.- Upper GI bleed : ulcer/gastritis /anastomosis ulceration/ or Mikayla Lopez tear. Can't rule out variceal bleed 4.- possible UTI. 5.- Normocytic anemia: multifactoria, due to liver disease, intermittent GI blee, and possible B12/folate def 6.- Thrombocytopenia : due to liver disease and BM suppression from ETOH 7.- ETOH abuse /intoxication: Patient is in withdrawals. Agree with Ativan detox protocol in light of transa minitis and liver dysfunction. When patient is medically stable, he can be transferred to [facility] for completion of detox. If patient completes detox at [facility], then she can be referred to [facility] for rehab.
[2020-02-10] MEDS: LORazepam 1 MG TABLET PO SCH ×3 (13:34→22:18)
[2020-02-10 13:58] LABS: ANISOCYTOSIS 2+; MACROCYTOSIS 1+; PLATELET ESTIMATE DECREASED; TARGET CELLS 2+
--- NOTE | 2020-02-10 15:37 | PN ---
Progress Note (short form) - Note Progress Note: ordered diagnostic paracentesis. unclear how long patient has had ascites Problem List - Problems (1) Cirrhosis of liver Code(s): K74.60 - UNSPECIFIED CIRRHOSIS OF LIVER
[2020-02-10 16:41] LABS: BASO % 0.1 % (0-2.0); EOS % 0.3 % (0-4.5); HEMATOCRIT 23.4 % (32.4-45.2); HEMOGLOBIN 7.8 GM/dL (10.7-15.3); LYMPH % 22.3 % (8-40); MCH 29.6 pg (25.7-33.7); MCHC 33.3 g/dl (32.0-36.0); MEAN CELL VOLUME 88.9 fl (80-96); MEAN PLT VOLUME 8.7 fl (7.5-11.1); MONO % 8.9 % (3.8-10.2); NEUT % 68.4 % (42.8-82.8); PLATELET COUNT 68 K/MM3 (134-434); RBC 2.63 M/mm3 (3.60-5.2); RDW 19.9 % (11.6-15.6); WHITE BLOOD COUNT 8.5 K/mm3 (4.0-10.0)
--- NOTE | 2020-02-10 17:54 | PN ---
Physical Exam: SUBJECTIVE: Patient seen and examined at bedside. The patient denies nausea/vomiting and fever/chills. The patient reports bright red blood in her stool, constipation, fatigue, and lightheadedness. She denies black stool, saying that she only has bright red stool. Patient was complaining of hunger due to the NPO order and pulling off her monitor. Patient received 1 unit pRBC this afternoon. Transfer to [facility] was accepted by Dr. Mann. Patient ready for transfer once her COVID results come back. OBJECTIVE: Vital Signs Period Temp Pulse Resp BP Sys/Portillo Pulse Ox Last 24 Hr 97.4 F-98.3 F 95-115 15-20 104-132/58-76 95-100 GENERAL: The patient is awake, alert, and fully oriented, in no acute distress. HEAD: Normal with no signs of trauma. EYES: Extraocular movements intact, sclera icteric, conjunctiva pale. No ptosis. ENT: Ears normal, nares patent, oropharynx clear without exudates, moist mucous membranes. Tongue piercing. NECK: Trachea midline, full range of motion, supple. LUNGS: Breath sounds equal, clear to auscultation bilaterally, no wheezes, no crackles, no accessory muscle use. HEART: Regular rate and rhythm, S1, S2. Systolic murmur worse at the base of the heart with S2 unable to be heard. ABDOMEN: Soft, diffuse 8/10 pain throughout her abdomen with no specific place more tender than the rest, distended, normoactive bowel sounds, no guarding, no rebound, hepatosplenomegaly, no masses. EXTREMITIES: 2+ pulses, warm, well-perfused, no edema. NEUROLOGICAL: Cranial nerves II through XII grossly intact. Normal speech, gait not observed. PSYCH: Normal mood, normal affect. SKIN: Warm, dry, normal turgor, no rashes or lesions noted. Cap refill > 3 seconds. Pale/blanched nails. Laboratory Results - last 24 hr 02/09/20 02/09/20 02/09/20 20:43 20:43 20:43 WBC 12.2 H RBC 2.53 L Hgb 7.6 L Hct 22.9 L MCV 90.6 MCH 29.9 MCHC 33.0 RDW 21.9 H Plt Count 93 L MPV 8.7 Absolute Neuts (auto) 10.0 H Neutrophils % 82.0 Neutrophils % (Manual) Band Neutrophils % Lymphocytes % 9.4 Lymphocytes % (Manual) Monocytes % 8.4 Monocytes % (Manual) Eosinophils % 0.0 Eosinophils % (Manual) Basophils % 0.2 Basophils % (Manual) Myelocytes % (Man) Promyelocytes % (Man) Blast Cells % (Manual) Nucleated RBC % 0 Metamyelocytes Hypochromia 2+ Platelet Estimate Polychromasia Poikilocytosis Anisocytosis 2+ Microcytosis Macrocytosis 2+ Target Cells Acanthocytes (Spur) 1+ Rouleaux 1+ Schistocytes 1+ PT with INR 20.10 H INR 1.69 H PTT (Actin FS) 37.3 H Sodium 130 L Potassium 4.0 Chloride 97 L Carbon Dioxide 14 L Anion Gap 19 H BUN 17.0 Creatinine 0.7 Est GFR (CKD-EPI)AfAm 125.61 Est GFR (CKD-EPI)NonAf 108.38 Random Glucose 102 Hemoglobin A1c % Calcium 7.9 L Phosphorus Magnesium 1.8 Iron TIBC Iron Saturation Unsaturated IBC Ferritin Total Bilirubin 11.2 H GGT AST 419 H ALT 231 H Alkaline Phosphatase 329 H Ammonia Total Protein 7.0 Albumin 2.5 L Triglycerides Cholesterol Total LDL Cholesterol HDL Cholesterol Lipase Vitamin B12 Serum Folate TSH Serum , Qual Urine Color Urine Appearance Urine pH Ur Specific [place] Urine Protein Urine Glucose (UA) Urine Ketones Urine Blood Urine Nitrite Urine Bilirubin Urine Urobilinogen Ur Leukocyte Esterase Urine WBC (Auto) Urine RBC (Auto) Urine Casts (Auto) U Pathogenic Cast Auto U Epithel Cells (Auto) Urine Bacteria (Auto) Stool Occult Blood Blood Type Antibody Screen Crossmatch 02/09/20 02/09/20 02/10/20 20:43 21:00 00:55 WBC RBC Hgb Hct MCV MCH MCHC RDW Plt Count MPV Absolute Neuts (auto) Neutrophils % Neutrophils % (Manual) Band Neutrophils % Lymphocytes % Lymphocytes % (Manual) Monocytes % Monocytes % (Manual) Eosinophils % Eosinophils % (Manual) Basophils % Basophils % (Manual) Myelocytes % (Man) Promyelocytes % (Man) Blast Cells % (Manual) Nucleated RBC % Metamyelocytes Hypochromia Platelet Estimate Polychromasia Poikilocytosis Anisocytosis Microcytosis Macrocytosis Target Cells Acanthocytes (Spur) Rouleaux Schistocytes PT with INR INR PTT (Actin FS) Sodium Potassium Chloride Carbon Dioxide Anion Gap BUN Creatinine Est GFR (CKD-EPI)AfAm Est GFR (CKD-EPI)NonAf Random Glucose Hemoglobin A1c % Calcium Phosphorus Magnesium Iron TIBC Iron Saturation Unsaturated IBC Ferritin Total Bilirubin GGT AST ALT Alkaline Phosphatase Ammonia < 10.00 L Total Protein Albumin Triglycerides Cholesterol Total LDL Cholesterol HDL Cholesterol Lipase Vitamin B12 Serum Folate TSH Serum , Qual Negative Urine Color Dk yellow Urine Appearance Turbid Urine pH 5.5 Ur Specific [place] 1.028 Urine Protein Trace Urine Glucose (UA) Negative Urine Ketones Trace H Urine Blood Negative Urine Nitrite Positive H Urine Bilirubin 3+ H Urine Urobilinogen 0.2 Ur Leukocyte Esterase Trace Urine WBC (Auto) 72 Urine RBC (Auto) 54 Urine Casts (Auto) 20 U Pathogenic Cast Auto Negative U Epithel Cells (Auto) >36 Urine Bacteria (Auto) >9,000 Stool Occult Blood Blood Type Antibody Screen Crossmatch 02/10/20 02/10/20 02/10/20 03:00 05:19 05:30 WBC 10.4 H 9.4 RBC 2.40 L 2.35 L Hgb 7.2 L 7.1 L Hct 21.5 L 21.1 L MCV 89.6 89.6 MCH 30.1 30.0 MCHC 33.6 33.5 RDW 21.7 H 22.2 H Plt Count 84 L 70 L MPV 8.5 8.2 Absolute Neuts (auto) 7.7 2.0 Neutrophils % 73.3 21.4 L D Neutrophils % (Manual) 82.4 89.8 H Band Neutrophils % 2.0 6.1 Lymphocytes % 18.4 D 74.9 H D Lymphocytes % (Manual) 3.9 L 1.0 L D Monocytes % 7.7 3.6 L Monocytes % (Manual) 9 2 L Eosinophils % 0.1 D 0.0 D Eosinophils % (Manual) 0.0 0.0 Basophils % 0.5 0.1 Basophils % (Manual) 0.0 0.0 Myelocytes % (Man) 3 H 0 D Promyelocytes % (Man) 0 0 Blast Cells % (Manual) 0 0 Nucleated RBC % 0 0 Metamyelocytes 0 0 Hypochromia 3+ 2+ Platelet Estimate Decreased Decreased Polychromasia 1+ 2+ Poikilocytosis 2+ 0 Anisocytosis 2+ 2+ Microcytosis 1+ 1+ Macrocytosis 2+ 1+ Target Cells 2+ Acanthocytes (Spur) Rouleaux 1+ Schistocytes PT with INR INR PTT (Actin FS) Sodium Potassium Chloride Carbon Dioxide Anion Gap BUN Creatinine Est GFR (CKD-EPI)AfAm Est GFR (CKD-EPI)NonAf Random Glucose Hemoglobin A1c % Calcium Phosphorus Magnesium Iron TIBC Iron Saturation Unsaturated IBC Ferritin Total Bilirubin GGT AST ALT Alkaline Phosphatase Ammonia Total Protein Albumin Triglycerides Cholesterol Total LDL Cholesterol HDL Cholesterol Lipase Vitamin B12 Serum Folate TSH Serum , Qual Urine Color Urine Appearance Urine pH Ur Specific [place] Urine Protein Urine Glucose (UA) Urine Ketones Urine Blood Urine Nitrite Urine Bilirubin Urine Urobilinogen Ur Leukocyte Esterase Urine WBC (Auto) Urine RBC (Auto) Urine Casts (Auto) U Pathogenic Cast Auto U Epithel Cells (Auto) Urine Bacteria (Auto) Stool Occult Blood Positive Blood Type Antibody Screen Crossmatch 02/10/20 02/10/20 02/10/20 05:30 05:30 05:30 WBC RBC Hgb Hct MCV MCH MCHC RDW Plt Count MPV Absolute Neuts (auto) Neutrophils % Neutrophils % (Manual) Band Neutrophils % Lymphocytes % Lymphocytes % (Manual) Monocytes % Monocytes % (Manual) Eosinophils % Eosinophils % (Manual) Basophils % Basophils % (Manual) Myelocytes % (Man) Promyelocytes % (Man) Blast Cells % (Manual) Nucleated RBC % Metamyelocytes Hypochromia Platelet Estimate Polychromasia Poikilocytosis Anisocytosis Microcytosis Macrocytosis Target Cells Acanthocytes (Spur) Rouleaux Schistocytes PT with INR INR PTT (Actin FS) Sodium 129 L Potassium 3.7 Chloride 97 L Carbon Dioxide 20 L Anion Gap 11 BUN 13.6 Creatinine 0.7 Est GFR (CKD-EPI)AfAm 125.61 Est GFR (CKD-EPI)NonAf 108.38 Random Glucose 116 H Hemoglobin A1c % < 3.5 L Calcium 7.1 L Phosphorus 1.6 L Magnesium 1.5 L Iron TIBC Iron Saturation Unsaturated IBC Ferritin Total Bilirubin 12.1 H GGT 947 H AST 368 H ALT 204 H Alkaline Phosphatase 312 H Ammonia Total Protein 6.4 Albumin 2.3 L Triglycerides 246 H Cholesterol 78 Total LDL Cholesterol 40 HDL Cholesterol 12 L Lipase Vitamin B12 Serum Folate TSH 1.97 Serum , Qual Urine Color Urine Appearance Urine pH Ur Specific [place] Urine Protein Urine Glucose (UA) Urine Ketones Urine Blood Urine Nitrite Urine Bilirubin Urine Urobilinogen Ur Leukocyte Esterase Urine WBC (Auto) Urine RBC (Auto) Urine Casts (Auto) U Pathogenic Cast Auto U Epithel Cells (Auto) Urine Bacteria (Auto) Stool Occult Blood Blood Type Antibody Screen Crossmatch 02/10/20 02/10/20 02/10/20 05:30 08:45 08:45 WBC RBC Hgb Hct MCV MCH MCHC RDW Plt Count MPV Absolute Neuts (auto) Neutrophils % Neutrophils % (Manual) Band Neutrophils % Lymphocytes % Lymphocytes % (Manual) Monocytes % Monocytes % (Manual) Eosinophils % Eosinophils % (Manual) Basophils % Basophils % (Manual) Myelocytes % (Man) Promyelocytes % (Man) Blast Cells % (Manual) Nucleated RBC % Metamyelocytes Hypochromia Platelet Estimate Polychromasia Poikilocytosis Anisocytosis Microcytosis Macrocytosis Target Cells Acanthocytes (Spur) Rouleaux Schistocytes PT with INR INR PTT (Actin FS) Sodium Potassium Chloride Carbon Dioxide Anion Gap BUN Creatinine Est GFR (CKD-EPI)AfAm Est GFR (CKD-EPI)NonAf Random Glucose Hemoglobin A1c % Calcium Phosphorus Magnesium Iron 219 H TIBC 246 L Iron Saturation 89 H Unsaturated IBC 27 L Ferritin 161.3 Total Bilirubin GGT AST ALT Alkaline Phosphatase Ammonia Total Protein Albumin Triglycerides Cholesterol Total LDL Cholesterol HDL Cholesterol Lipase 117 Vitamin B12 3573 H Serum Folate 16 TSH Serum , Qual Urine Color Urine Appearance Urine pH Ur Specific [place] Urine Protein Urine Glucose (UA) Urine Ketones Urine Blood Urine Nitrite Urine Bilirubin Urine Urobilinogen Ur Leukocyte Esterase Urine WBC (Auto) Urine RBC (Auto) Urine Casts (Auto) U Pathogenic Cast Auto U Epithel Cells (Auto) Urine Bacteria (Auto) Stool Occult Blood Blood Type O POSITIVE O POSITIVE Antibody Screen Negative Crossmatch See Detail 02/10/20 02/10/20 10:32 15:15 WBC 8.5 RBC 2.63 L Hgb 7.8 L Hct 23.4 L MCV 88.9 MCH 29.6 MCHC 33.3 RDW 19.9 H Plt Count 68 L MPV 8.7 Absolute Neuts (auto) 5.8 Neutrophils % 68.4 D Neutrophils % (Manual) Band Neutrophils % Lymphocytes % 22.3 D Lymphocytes % (Manual) Monocytes % 8.9 D Monocytes % (Manual) Eosinophils % 0.3 D Eosinophils % (Manual) Basophils % 0.1 Basophils % (Manual) Myelocytes % (Man) Promyelocytes % (Man) Blast Cells % (Manual) Nucleated RBC % 0 Metamyelocytes Hypochromia Platelet Estimate Polychromasia Poikilocytosis Anisocytosis Microcytosis Macrocytosis Target Cells Acanthocytes (Spur) Rouleaux Schistocytes PT with INR INR PTT (Actin FS) Sodium Potassium Chloride Carbon Dioxide Anion Gap BUN Creatinine Est GFR (CKD-EPI)AfAm Est GFR (CKD-EPI)NonAf Random Glucose Hemoglobin A1c % Calcium Phosphorus Magnesium Iron TIBC Iron Saturation Unsaturated IBC Ferritin Total Bilirubin GGT AST ALT Alkaline Phosphatase Ammonia Total Protein Albumin Triglycerides Cholesterol Total LDL Cholesterol HDL Cholesterol Lipase Vitamin B12 Serum Folate TSH Serum , Qual Urine Color Urine Appearance Urine pH Ur Specific [place] Urine Protein Urine Glucose (UA) Urine Ketones Urine Blood Urine Nitrite Urine Bilirubin Urine Urobilinogen Ur Leukocyte Esterase Urine WBC (Auto) Urine RBC (Auto) Urine Casts (Auto) U Pathogenic Cast Auto U Epithel Cells (Auto) Urine Bacteria (Auto) Stool Occult Blood Positive Blood Type Antibody Screen Crossmatch Active Medications Generic Name Dose Route Start Last Admin Trade Name Freq PRN Reason Stop Dose Admin Octreotide Acetate 200 mcg/ 500 mls @ 20.833 mls/hr 02/10/20 10:00 02/10/20 14:30 Octreotide Acetate 1,000 mcg/ IVPB 20.833 mls/hr Dextrose Q24H ANDERSON Administration Sodium Phosphate 25 mm/ Sodium 508.3333 mls @ 62.5 mls/hr 02/10/20 10:00 Chloride IV 02/10/20 18:07 ONCE ONE Dextrose/Sodium Chloride 1,000 mls @ 75 mls/hr 02/10/20 08:15 02/10/20 08:40 D5-Ns - IV 75 mls/hr ASDIR ANDERSON Administration Metronidazole 500 mg in 100 mls @ 100 mls/hr 02/10/20 10:30 Flagyl 500mg Premixed Ivpb - IVPB Q8H-IV ANDERSON Ceftriaxone Sodium 2 gm/ 100 mls @ 200 mls/hr 02/10/20 22:00 Dextrose IVPB Q24H ANDERSON Lorazepam 1 mg 02/12/20 05:00 Ativan - PO 02/12/20 23:01 0500,1100,1700,2300 ANDERSON Lorazepam 1 mg 02/10/20 12:21 Ativan - PO 02/12/20 23:59 Q4H PRN Symptoms of Withdrawal Lorazepam 2 mg 02/10/20 11:00 02/10/20 13:34 Ativan - PO 02/11/20 23:01 Not Given 0500,1100,1700,2300 ANDERSON Lorazepam 0.5 mg 02/13/20 05:00 Ativan - PO 02/13/20 23:01 Q6H ANDERSON Lorazepam 0.5 mg 02/13/20 00:00 Ativan - PO 02/14/20 00:00 Q4H PRN Symptoms of Withdrawal Lorazepam 0.5 mg 02/14/20 05:00 Ativan - PO 02/14/20 05:01 ONCE ONE Pantoprazole Sodium 40 mg 02/10/20 10:00 02/10/20 10:49 Protonix Iv IVPUSH 40 mg BID ANDERSON Administration ASSESSMENT/PLAN: 39 year old female patient with past medical history that includes alcohol abuse, HTN, HLD, Asthma, x2, s/p gastric bypass, who presented to the emergency room from [facility] with abdominal pain for 2 weeks with 1 episode of vomiting bright red blood of about 3 tablespoons in the emergency room. 1. Liver Cirrhosis with transaminitis - CT A/P shows liver cirrhosis - Transfer to [facility] accepted by Dr. Mann, pending COVID results - Maddrey's Discriminate Function: 44.8 - Hepatitis panel pending 2. Upper GI bleed 2/2 zeinab farias tear vs. variceal bleeding vs. GI bleed - Received 1 pRBC - 1 episode of vomiting bright red blood in ED - Bright red blood in stool - FOBT positive 3. Normocytic anemia 2/2 bleeding vs. anemia of chronic disease - Hgb 7.8 - MCV 88.9 - RDW: 19.9 - Vit B12: 3573 - Folate: 16 - Received 1 pRBC 4. Alcohol withdrawal - IV Thiamine received - Patient receiving Ativan protocol # FEN - D5-NS, Monitoring Electrolytes, Clear liquid diet DVT PPx - SCDs Dispo - Awaiting COVID results for transfer Visit type - Emergency Visit Emergency Visit: Yes ED Registration Date: 02/10/20 Care time: The patient presented to the Emergency Department on the above date and was hospitalized for further evaluation of their emergent condition. - New Patient This patient is new to me today: Yes Date on this admission: 02/10/20 - Critical Care Critical Care patient: No - Discharge Referral Referred to [facility] No ATTENDING PHYSICIAN STATEMENT I saw and evaluated the patient. I reviewed the resident's note and discussed the case with the resident. I agree with the resident's findings and plan as documented. SUBJECTIVE: OBJECTIVE: ASSESSMENT AND PLAN:
[2020-02-10 20:21] LABS: HEMATOCRIT 23.5 % (32.4-45.2); HEMOGLOBIN 7.8 GM/dL (10.7-15.3); MCH 30.1 pg (25.7-33.7); MCHC 33.1 g/dl (32.0-36.0); MEAN CELL VOLUME 90.9 fl (80-96); MEAN PLT VOLUME 8.5 fl (7.5-11.1); PLATELET COUNT 52 K/MM3 (134-434); RBC 2.58 M/mm3 (3.60-5.2); RDW 20.5 % (11.6-15.6)
[2020-02-10] MEDS ORDERED: DEXTROSE 5%-WATER 100 ML IVPB ONE (21:32)
[2020-02-10] MEDS ORDERED: CEFTRIAXONE 2 GM in DEXTROSE 5%-WATER 100 ML IVPB SCH (22:00)
[2020-02-10] MEDS ORDERED: CEFTRIAXONE 1 GM in DEXTROSE 5%-WATER - 50 ML IVPB SCH (22:00)
--- NOTE | 2020-02-10 23:35 | CON.GU ---
Consult Consult Specialty:: urology consult - History of Present Illness Chief Complaint: h/o gross ,total, painless hemayuria, mild pat History of Present Illness: pt. with h/o hematochezia, brbpr and gross, total, painless hematuria, h/o of rec. uti - History Source History Provided By: Patient, Family Member Limitations to Obtaining History: Poor Historian - Past Medical History Cardio/Vascular: Yes: HTN Pulmonary: Yes: Asthma Gastrointestinal: Yes: Ascites, GERD Hepatobiliary: Yes: Cirrhosis Renal/: Yes: Hematuria, UTI, Other (mild pat) ...LMP: 01/22/20 ...: No (unknown) ...: 3 ...Para: 3 Heme/Onc: Yes: Anemia Psych: Yes: Addictions (Alcoholism), Depression - Past Surgical History Past Surgical History: Yes: None, Additional Surgical History: Gastric bypass, , treatment of groin abscess, abdominoplasty - Alcohol/Substance Use Hx Alcohol Use: Yes - Smoking History Smoking history: Current every day smoker Have you smoked in the past 12 months: Yes Aproximately how many cigarettes per day: 20 - Social History Usual Living Arrangement: With Child (with three daughters) ADL: Independent Place of : [place] (h/o gross ,hematuria, micturation disorder) History of Recent Travel: No Home Medications - Allergies Allergies/Adverse Reactions: Allergies Allergy/AdvReac Type Severity Reaction Status Date / Time doxycycline Allergy Severe Verified 02/09/20 18:23 meperidine [From Demerol] Allergy Severe Verified 02/09/20 18:23 - Home Medications Home Medications: Ambulatory Orders NK [No Known Home Medication] 02/09/20 Family Medical History Other Family History: No family history of colorectal cancer or other GI malignancy Physical Exam- Vital Signs: Vital Signs Temperature 98.3 F 02/10/20 22:00 Pulse Rate 101 H 02/10/20 22:00 Respiratory Rate 20 02/10/20 22:00 Blood Pressure 115/73 02/10/20 22:00 O2 Sat by Pulse Oximetry (%) 97 02/10/20 22:00 Labs: CBC, BMP 02/10/20 18:00 02/10/20 05:30 Assessment/Plan pt. with h/o micturation disorder and hematuria. she will need a gu w/u as op in office.
[2020-02-10] MEDS ORDERED: traMADol HCL 50 MG TABLET PO ONE (23:44)
[2020-02-11] MEDS: DEXTROSE 5%-NORMAL SALINE 1,000 ML IV SCH (02:54)
[2020-02-11] MEDS ORDERED: LORazepam 2 MG/ML SDV VIAL IVPUSH SCH (05:00)
[2020-02-11] MEDS: LORazepam 1 MG TABLET PO SCH (05:17)
[2020-02-11 05:41] VITALS: TEMP 98.2
[2020-02-11 06:24] LABS: HEMATOCRIT 22.3 % (32.4-45.2); HEMOGLOBIN 7.5 GM/dL (10.7-15.3); MCH 30.1 pg (25.7-33.7); MCHC 33.5 g/dl (32.0-36.0); MEAN PLT VOLUME 8.4 fl (7.5-11.1); PLATELET COUNT 60 K/MM3 (134-434); RBC 2.48 M/mm3 (3.60-5.2); RDW 20.2 % (11.6-15.6); WHITE BLOOD COUNT 6.3 K/mm3 (4.0-10.0)
[2020-02-11 06:44] LABS: ALBUMIN 2.2 g/dl (3.4-5.0); BLOOD UREA NITROGEN 7.8 mg/dL (7-18); CALCIUM 7.4 mg/dL (8.5-10.1); CREATININE 0.8 mg/dL (0.55-1.3); MAGNESIUM 2.1 mg/dL (1.8-2.4); PHOSPHOROUS 1.3 mg/dL (2.5-4.9); POTASSIUM 3.3 mmol/L (3.5-5.1); TOT PROT 6.5 g/dl (6.4-8.2)
[2020-02-11 07:51] LABS: BILIRUBIN,TOTAL 15.5 mg/dL (0.2-1)
[2020-02-11] MEDS ORDERED: KCL 10 MEQ IVPB 10 MEQ/100 ML INFUS.BAG IVPB SCH (08:45)
[2020-02-11] MEDS ORDERED: POTASSIUM PHOSPHATE 15 MM in SODIUM CHLORIDE 250 ML IVPB ONE (08:45)
[2020-02-11 09:03] VITALS: BP 101/68; PULSE 104
--- NOTE | 2020-02-11 09:12 | DS ---
Physical Exam: SUBJECTIVE: Patient unable to be seen and examined today. COVID results came back negative, so patient was promptly transferred to [facility]. OBJECTIVE: Vital Signs Period Temp Pulse Resp BP Sys/Portillo Pulse Ox Last 24 Hr 98.0 F-98.4 F 101-108 18-20 101-130/68-76 97-100 PHYSICAL EXAM (Patient transferred early this morning.) Yesterday: GENERAL: The patient is awake, alert, and fully oriented, in no acute distress. HEAD: Normal with no signs of trauma. EYES: Extraocular movements intact, sclera icteric, conjunctiva pale. No ptosis. ENT: Ears normal, nares patent, oropharynx clear without exudates, moist mucous membranes. Tongue piercing. NECK: Trachea midline, full range of motion, supple. LUNGS: Breath sounds equal, clear to auscultation bilaterally, no wheezes, no crackles, no accessory muscle use. HEART: Regular rate and rhythm, S1, S2. Systolic murmur worse at the base of the heart with S2 unable to be heard. ABDOMEN: Soft, diffuse 8/10 pain throughout her abdomen with no specific place more tender than the rest, distended, normoactive bowel sounds, no guarding, no rebound, hepatosplenomegaly, no masses. EXTREMITIES: 2+ pulses, warm, well-perfused, no edema. NEUROLOGICAL: Cranial nerves II through XII grossly intact. Normal speech, gait not observed. PSYCH: Normal mood, normal affect. SKIN: Warm, dry, normal turgor, no rashes or lesions noted. Cap refill > 3 seconds. Pale/blanched nails. LABS Laboratory Results - last 24 hr 02/10/20 02/10/20 02/10/20 05:30 05:30 05:51 WBC RBC Hgb Hct MCV MCH MCHC RDW Plt Count MPV Absolute Neuts (auto) Neutrophils % Neutrophils % (Manual) 89.8 H Band Neutrophils % 6.1 Lymphocytes % Lymphocytes % (Manual) 1.0 L D Monocytes % Monocytes % (Manual) 2 L Eosinophils % Eosinophils % (Manual) 0.0 Basophils % Basophils % (Manual) 0.0 Myelocytes % (Man) 0 D Promyelocytes % (Man) 0 Blast Cells % (Manual) 0 Nucleated RBC % 0 Metamyelocytes 0 Hypochromia 2+ Platelet Estimate Decreased Polychromasia 2+ Poikilocytosis 0 Anisocytosis 2+ Microcytosis 1+ Macrocytosis 1+ Target Cells 2+ Sodium Potassium Chloride Carbon Dioxide Anion Gap BUN Creatinine Est GFR (CKD-EPI)AfAm Est GFR (CKD-EPI)NonAf Random Glucose Calcium Phosphorus Magnesium Iron TIBC Iron Saturation Unsaturated IBC Ferritin Total Bilirubin AST ALT Alkaline Phosphatase Total Protein Albumin Lipase Vitamin B12 Serum Folate Stool Occult Blood COVID-19 (JOSIE) Not detected HIV 1&2 Ag/Ab, 4th Gen Blood Type O POSITIVE Antibody Screen Negative Crossmatch See Detail 02/10/20 02/10/20 02/10/20 08:45 08:45 08:45 WBC RBC Hgb Hct MCV MCH MCHC RDW Plt Count MPV Absolute Neuts (auto) Neutrophils % Neutrophils % (Manual) Band Neutrophils % Lymphocytes % Lymphocytes % (Manual) Monocytes % Monocytes % (Manual) Eosinophils % Eosinophils % (Manual) Basophils % Basophils % (Manual) Myelocytes % (Man) Promyelocytes % (Man) Blast Cells % (Manual) Nucleated RBC % Metamyelocytes Hypochromia Platelet Estimate Polychromasia Poikilocytosis Anisocytosis Microcytosis Macrocytosis Target Cells Sodium Potassium Chloride Carbon Dioxide Anion Gap BUN Creatinine Est GFR (CKD-EPI)AfAm Est GFR (CKD-EPI)NonAf Random Glucose Calcium Phosphorus Magnesium Iron 219 H TIBC 246 L Iron Saturation 89 H Unsaturated IBC 27 L Ferritin 161.3 Total Bilirubin AST ALT Alkaline Phosphatase Total Protein Albumin Lipase 117 Vitamin B12 3573 H Serum Folate 16 Stool Occult Blood COVID-19 (JOSIE) HIV 1&2 Ag/Ab, 4th Gen Non reactive Blood Type O POSITIVE Antibody Screen Crossmatch 02/10/20 02/10/20 02/10/20 10:32 15:15 18:00 WBC 8.5 7.0 RBC 2.63 L 2.58 L Hgb 7.8 L 7.8 L Hct 23.4 L 23.5 L MCV 88.9 90.9 MCH 29.6 30.1 MCHC 33.3 33.1 RDW 19.9 H 20.5 H Plt Count 68 L 52 L D MPV 8.7 8.5 Absolute Neuts (auto) 5.8 Neutrophils % 68.4 D Neutrophils % (Manual) Band Neutrophils % Lymphocytes % 22.3 D Lymphocytes % (Manual) Monocytes % 8.9 D Monocytes % (Manual) Eosinophils % 0.3 D Eosinophils % (Manual) Basophils % 0.1 Basophils % (Manual) Myelocytes % (Man) Promyelocytes % (Man) Blast Cells % (Manual) Nucleated RBC % 0 Metamyelocytes Hypochromia Platelet Estimate Polychromasia Poikilocytosis Anisocytosis Microcytosis Macrocytosis Target Cells Sodium Potassium Chloride Carbon Dioxide Anion Gap BUN Creatinine Est GFR (CKD-EPI)AfAm Est GFR (CKD-EPI)NonAf Random Glucose Calcium Phosphorus Magnesium Iron TIBC Iron Saturation Unsaturated IBC Ferritin Total Bilirubin AST ALT Alkaline Phosphatase Total Protein Albumin Lipase Vitamin B12 Serum Folate Stool Occult Blood Positive COVID-19 (JOSIE) HIV 1&2 Ag/Ab, 4th Gen Blood Type Antibody Screen Crossmatch 02/11/20 02/11/20 05:30 05:30 WBC 6.3 RBC 2.48 L Hgb 7.5 L Hct 22.3 L MCV 90.0 MCH 30.1 MCHC 33.5 RDW 20.2 H Plt Count 60 L MPV 8.4 Absolute Neuts (auto) Neutrophils % Neutrophils % (Manual) Band Neutrophils % Lymphocytes % Lymphocytes % (Manual) Monocytes % Monocytes % (Manual) Eosinophils % Eosinophils % (Manual) Basophils % Basophils % (Manual) Myelocytes % (Man) Promyelocytes % (Man) Blast Cells % (Manual) Nucleated RBC % Metamyelocytes Hypochromia Platelet Estimate Polychromasia Poikilocytosis Anisocytosis Microcytosis Macrocytosis Target Cells Sodium 134 L Potassium 3.3 L Chloride 103 Carbon Dioxide 20 L Anion Gap 11 BUN 7.8 Creatinine 0.8 Est GFR (CKD-EPI)AfAm 106.88 Est GFR (CKD-EPI)NonAf 92.22 Random Glucose 161 H Calcium 7.4 L Phosphorus 1.3 L Magnesium 2.1 Iron TIBC Iron Saturation Unsaturated IBC Ferritin Total Bilirubin 15.5 H* D AST 346 H ALT 182 H Alkaline Phosphatase 295 H Total Protein 6.5 Albumin 2.2 L Lipase Vitamin B12 Serum Folate Stool Occult Blood COVID-19 (JOSIE) HIV 1&2 Ag/Ab, 4th Gen Blood Type Antibody Screen Crossmatch HOSPITAL COURSE: Date of Admission:02/10/20 39 year old female patient with past medical history that includes alcohol abuse, HTN, HLD, Asthma, x2, s/p gastric bypass, who presented to the emergency room from [facility] with abdominal pain for 2 weeks with 1 episode of vomiting bright red blood of about 3 tablespoons in the emergency room as well as bright red blood in her stool. Patient received 1 unit of pRBC. FOBT came back positive. Ativan protocol was started for alcohol withdrawal. CT A/P showed liver cirrhosis. Esequiel's Discriminate Function calculated at 44.8. Dr. Denis called [facility] and spoke to Dr. Mann, who agreed for the patient to transfer to [facility]. The patient was agreeable to transfer. Once the COVID results came back, the patient was promptly transferred. Date of Discharge: 02/11/20 Minutes to complete discharge: 40 Discharge Summary Problems reviewed: Yes Reason For Visit: INFLAMMATORY LIVER DISEASE, ALCOHOL INTOXICATION Current Active Problems Alcohol intoxication in active alcoholic with complication (Acute) Condition: Stable - Instructions Diet, Activity, Other Instructions: You were admitted to the hospital because of abdominal pain with vomiting of some blood and bright red blood in your stool. You were evaluated with lab work, blood work, and imaging, including a CAT scan of your abdomen and pelvis. The CAT scan of your abdomen and pelvis found that you have liver cirrhosis. The [facility], after examining your situation, decided that you will need transfer to [facility] for treatment of your liver cirrhosis, so you are being transferred to the [facility]. During your hospital admission, because you vomited some blood, we also gave you medication including antibiotics to prevent problems. Your blood concentration was low, so we gave you 1 unit of blood. Because of your alcohol use, we treated you with medication to prevent alcohol withdrawal. Imaging Findings A CAT scan of your abdomen and pelvis found that your liver is enlarged, measuring 24.7 centimeters, your spleen is enlarged measuring 12.6 centimeters, and that you have liver cirrhosis. The CAT scan of your abdomen and pelvis also found that you have fluid in your belly, most likely from your liver cirrhosis. Medications Please continue all of your medications as prescribed. Follow ups Please follow up with the [facility] Dr. Royal Denis within 1 week regarding your liver cirrhosis. Please follow up with your Primary Care physician, or the Primary Care physician we have provided for you Dr. Mac Cline, within 1 week. If you experience worsening symptoms, chest pain, shortness of breath, abdominal pain, fainting, or worsening of your condition, please come to the emergency room or call [phone]. Referrals: Mac Cline MD [Staff Physician] - 1 Week Srinivasa Denis DO [Staff Physician] - 1 Week (Liver Cirrhosis) Disposition: TRANSFER ACUTE CARE/OTHER HOSP - Home Medications Comprehensive Discharge Medication List: Ambulatory Orders NK [No Known Home Medication] 02/09/20 This patient is new to me today: No Emergency Visit: Yes ED Registration Date: 02/10/20 Care time: The patient presented to the Emergency Department on the above date and was hospitalized for further evaluation of their emergent condition. Critical Care patient: No - Discharge Referral Referred to [facility] No ATTENDING PHYSICIAN STATEMENT I saw and evaluated the patient. I reviewed the resident's note and discussed the case with the resident. I agree with the resident's findings and plan as documented. SUBJECTIVE: OBJECTIVE: ASSESSMENT AND PLAN:
--- NOTE | 2020-02-11 15:43 | HOSP ---
Subjective - Review of Symptoms Events since last encounter: by the time I came to see patient ( around 10 am ) , she was transferred to [facility]. Physical Examination Vital Signs: Labs: CBC, BMP 02/11/20 05:30 02/11/20 05:30
[2020-02-11 19:06] LABS: HEP B CORE AB, TOT Negative (Negative)
[2020-02-12] MEDS ORDERED: LORazepam 2 MG/ML SDV VIAL IVPUSH PRN
[2020-02-12] MEDS ORDERED: LORazepam 1 MG TABLET PO SCH (05:00)
[2020-02-12] MEDS ORDERED: LORazepam 2 MG/ML SDV VIAL IVPUSH SCH (05:00)
[2020-02-13] MEDS ORDERED: LORazepam 0.5 MG TABLET PO PRN
[2020-02-13] MEDS ORDERED: LORazepam 0.5 MG TABLET PO SCH (05:00)
[2020-02-13] MEDS ORDERED: LORazepam 2 MG/ML SDV VIAL IVPUSH ONE (05:00)
[2020-02-14] MEDS ORDERED: LORazepam 0.5 MG TABLET PO ONE (05:00)
== END 2020-02-11 08:20 | disposition short-term general hospital (02) | DRG 280 ==
LOC: JER 18:14 → JERBED 02-10 00:43 → J4W 02-10 06:30
PROVIDERS: ADMIT Internal Medicine; ATTEND Internal Medicine
PROC: 30233N1 Transfusion of Nonautologous Red Blood Cells into Peripheral Vein, Percutaneous Approach (ICD-10-PCS; principal; 2020-02-10)
DX: K70.11 Alcoholic hepatitis with ascites (principal); E78.5 Hyperlipidemia, unspecified; F10.20 Alcohol dependence, uncomplicated; K76.0 Fatty (change of) liver, not elsewhere classified; N39.0 Urinary tract infection, site not specified; J45.909 Unspecified asthma, uncomplicated; I10 Essential (primary) hypertension; F10.229 Alcohol dependence with intoxication, unspecified; R16.0 Hepatomegaly, not elsewhere classified; K70.31 Alcoholic cirrhosis of liver with ascites; K75.9 Inflammatory liver disease, unspecified; K92.2 Gastrointestinal hemorrhage, unspecified; D62 Acute posthemorrhagic anemia; D69.6 Thrombocytopenia, unspecified; E87.1 Hypo-osmolality and hyponatremia; K21.9 Gastro-esophageal reflux disease without esophagitis; F17.210 Nicotine dependence, cigarettes, uncomplicated
CPT/HCPCS: 36415; 36430; 71045-TC-FY; 74176-TC; 80053; 80061; 81003; 82140; 82272; 82607; 82728; 82746; 82977; 83036; 83540; 83550; 83690; 83721; 83735; 84100; 84443; 84703; 85025; 85027; 85610; 85730; 86704; 86706; 86707; 86708; 86709; 86850; 86900; 86901; 86922; 87340; 87389; 87902; 93005; 93010; 99285-25; P9058; U0003